=== PATIENT | female | born 1995 | race Caucasian/White ===

== ENCOUNTER 2016-07-02 14:23 | Emergency (ER) | payer SELFPAY ==
[~2016-07-02] VITALS: Ht 160 cm; Wt 59.0 kg
[~2016-07-02 14:23] MED LIST: CIPRO250 MG PO; DIFLUCAN150 MG PO; K-TAB20 MEQ PO; KETOROLAC10 MG PO; LOMOTIL 0.025 M1 TA1 PO; PHENERGAN W/ DE30 ML PO; PREDNICOT10 MG PO; PROAIR HFA0.09 MG/AC INH; ZOFRAN ODT4 MG SL
[2016-07-02 14:52] LABS: HEMATOCRIT 37.6 % (37.0-47.0); HEMOGLOBIN 13.3 g/dl (12.0-16.0); MEAN CELL VOLUME 90.4 fl (81.0-99.0); MEAN CORPUSCULAR HGB CONC 35.4 g/dl (33.0-37.0); MEAN PLATELET VOLUME 9.6 fl (9.6-12.3); PLATELET COUNT AUTOMATED 199 10*3/uL (130-400); RED BLOOD COUNT 4.16 10*6/uL (4.10-5.10); RED CELL DISTRI WIDTH 12.5 % (0-14.5); WHITE BLOOD COUNT 7.4 10*3/uL (4.8-10.8)
[2016-07-02 14:59] LABS: BILIRUBIN NEGATIVE (NEGATIVE); BLOOD NEGATIVE (NEGATIVE); CLARITY SL CLOUDY (CLEAR); COLOR YELLOW (YELLOW); GLUCOSE NEGATIVE (NEGATIVE); KETONE 2+ (NEGATIVE); LEUKO ESTERASE NEGATIVE (NEGATIVE); NITRITE NEGATIVE (NEGATIVE); PH 6.5 (5.0-9.0); PROTEIN TRACE (NEGATIVE); SPECIFIC GRAVITY 1.025 (1.005-1.030)
[2016-07-02 15:08] LABS: ALBUMIN 4.2 gm/dl (3.1-4.5); ALKALINE PHOSPHATASE 58 U/L (45-117); BILIRUBIN, TOTAL 0.7 mg/dl (0.2-1.0); BUN 15 mg/dl (7-24); CARBON DIOXIDE 25 mmol/L (21-32); CHLORIDE 104 mmol/L (98-107); EST GLOM FILT AFRICAN AMERICAN > 60 ml/min; GLUCOSE 99 mg/dL (65-99); POTASSIUM 3.6 mmol/L (3.5-5.1); SGOT/AST 12 IU/L (3-35); SGPT/ALT 13 U/L (12-78); SODIUM 138 mmol/L (136-145); TOTAL PROTEIN 6.9 gm/dL (6.4-8.2)
[2016-07-02 15:11] LABS: ATYPICAL LYMPHS 1 % (0-0); LYMPHOCYTE # 0.5 10*3/uL (1.3-4.4); MONOCYTE # 0.3 10*3/uL (0.1-1.0); NEUTROPHIL # 6.6 10*3/uL (2.3-7.9); NEUTROPHILS 89 % (47-73); PLATELET SUFFICIENCY NORMAL (NORMAL); TOTAL CELLS COUNTED 100 #CELLS
[2016-07-02 15:25] LABS: BACTERIA 3+; MUCOUS 1+; URINE REFLEX COMMENT YES (NO); WBC 0-2 wbc/hpf (0-5)
[2016-07-02] MEDS ORDERED: ZOFRAN ODT4 MG SL (15:51)
== END 2016-07-02 16:02 | disposition home or self-care (01) ==
LOC: ED 14:23
PROVIDERS: Registered Nurse
DX: K52.9 Noninfective gastroenteritis and colitis, unspecified (principal); F17.200 Nicotine dependence, unspecified, uncomplicated

== ENCOUNTER 2016-10-04 01:22 | Emergency (ER) | payer OTHER ==
[~2016-10-04] VITALS: Ht 162.5 cm; Wt 56.7 kg
[2016-10-04] MEDS ORDERED: KEFLEX500 M1 PO ×2 (01:39→01:51)
== END 2016-10-04 02:02 | disposition home or self-care (01) ==
LOC: ED 01:22
DX: S60.372A Other superficial bite of left thumb, initial encounter (principal); S60.471A Other superficial bite of left index finger, initial encounter; W59.11XA Bitten by nonvenomous snake, initial encounter; Y93.89 Activity, other specified; Y92.009 Unspecified place in unspecified non-institutional (private) residence as the place of occurrence of the external cause; Y99.8 Other external cause status

== ENCOUNTER 2017-01-07 10:23 | Emergency (ER) | payer OTHER ==
[~2017-01-07] VITALS: Ht 160 cm; Wt 59.0 kg
[~2017-01-07 10:23] MED LIST changes: +KEFLEX500 M1 PO
[2017-01-07] MEDS ORDERED: CLARITIN10 MG PO (10:56)
[2017-01-07] MEDS ORDERED: FLONASE ALLERG9.9 ML NAS (10:56)
[2017-01-07] MEDS ORDERED: PREDNISONE10 MG PO (10:56)
[2017-01-07] MEDS ORDERED: ROBITUSSIN DM 105 ML PO (10:56)
== END 2017-01-07 12:10 | disposition home or self-care (01) ==
LOC: ED 10:23
DX: B34.9 Viral infection, unspecified (principal); R03.0 Elevated blood-pressure reading, without diagnosis of hypertension; E87.6 Hypokalemia; F17.200 Nicotine dependence, unspecified, uncomplicated

== ENCOUNTER 2017-06-25 09:37 | Emergency (ER) | payer OTHER ==
[~2017-06-25] VITALS: Ht 160 cm; Wt 59.0 kg
[~2017-06-25 09:37] MED LIST changes: +CLARITIN10 MG PO; +FLONASE ALLERG9.9 ML NAS; +PREDNISONE10 MG PO; +ROBITUSSIN DM 105 ML PO
== END 2017-06-25 10:32 | disposition home or self-care (01) ==
LOC: ED 09:37
DX: S16.1XXA Strain of muscle, fascia and tendon at neck level, initial encounter (principal); F17.200 Nicotine dependence, unspecified, uncomplicated; Z79.899 Other long term (current) drug therapy; V49.59XA Passenger injured in collision with other motor vehicles in traffic accident, initial encounter; Y93.89 Activity, other specified; Y92.413 State road as the place of occurrence of the external cause; Y99.9 Unspecified external cause status

== ENCOUNTER 2018-05-05 18:52 | Emergency (ER) | payer OTHER ==
[~2018-05-05] VITALS: Ht 162.5 cm; Wt 77.1 kg
[2018-05-05] MEDS ORDERED: PENICILLIN VK500 MG PO (19:06)
[2018-05-05] MEDS ORDERED: HYDROCODONE-AC1 EAC1 PO (19:06)
[2018-05-05] MEDS ORDERED: Motrin,Rufen800 MG PO (20:45)
== END 2018-05-05 20:52 | disposition home or self-care (01) ==
LOC: ED 18:52
DX: G89.18 Other acute postprocedural pain (principal); K08.89 Other specified disorders of teeth and supporting structures

== ENCOUNTER 2018-09-04 14:04 | Emergency (ER) | payer OTHER ==
[~2018-09-04] VITALS: Ht 162.5 cm; Wt 77.1 kg
[~2018-09-04 14:04] MED LIST changes: +HYDROCODONE-AC1 EAC1 PO; +Motrin,Rufen800 MG PO; +PENICILLIN VK500 MG PO
[2018-09-04] MEDS ORDERED: NORCO 5-325 TA1 EACH PO (16:43)
== END 2018-09-04 16:56 | disposition home or self-care (01) ==
LOC: ED 14:04
DX: S32.010A Wedge compression fracture of first lumbar vertebra, initial encounter for closed fracture (principal); W18.39XA Other fall on same level, initial encounter; Y93.16 Activity, rowing, canoeing, kayaking, rafting and tubing; Y92.89 Other specified places as the place of occurrence of the external cause; Y99.8 Other external cause status

== ENCOUNTER → 2018-10-12 | Outpatient (CLI) | payer OTHER ==
[~2018-10-12] MED LIST changes: +NORCO 5-325 TA1 EACH PO
== END | disposition home or self-care (01) ==
LOC: MRI 10:45
DX: M54.5 Low back pain (principal)

== ENCOUNTER 2018-12-01 14:06 | Emergency (ER) | payer OTHER ==
[~2018-12-01] VITALS: Wt 74.8 kg
[2018-12-01] MEDS ORDERED: PREDNISONE10 MG PO (14:30)
== END 2018-12-01 14:35 | disposition home or self-care (01) ==
LOC: ED 14:06
DX: L23.9 Allergic contact dermatitis, unspecified cause (principal)

== ENCOUNTER 2019-03-02 22:05 | Emergency (ER) | payer OTHER ==
[~2019-03-02] VITALS: Ht 162.5 cm; Wt 74.8 kg
[2019-03-03] MEDS ORDERED: Motrin,Rufen800 MG PO (00:34)
[2019-03-03] MEDS ORDERED: ZOFRAN4 MG PO (00:34)
== END 2019-03-03 00:39 | disposition home or self-care (01) ==
LOC: ED 22:05
DX: B34.9 Viral infection, unspecified (principal); R11.2 Nausea with vomiting, unspecified; F17.200 Nicotine dependence, unspecified, uncomplicated

== ENCOUNTER → 2021-06-24 | Outpatient (CLI) | payer OTHER ==
[~2021-06-24] MED LIST changes: +ZOFRAN4 MG PO
== END | disposition home or self-care (01) ==
LOC: US 13:30
PROVIDERS: ATTEND Nurse Practitioner Women's Health
DX: N88.8 Other specified noninflammatory disorders of cervix uteri (principal); N92.1 Excessive and frequent menstruation with irregular cycle

== ENCOUNTER 2021-08-17 13:59 | Emergency (ER) | payer OTHER ==
[~2021-08-17] VITALS: Wt 72.6 kg
[2021-08-17] MEDS ORDERED: LAMOTRIGINE100 MG PO (14:17)
[2021-08-17] MEDS ORDERED: FLUOXETINE HCL40 MG PO (14:19)
[2021-08-17] MEDS ORDERED: MIRTAZAPINE45 MG PO (14:19)
[2021-08-17] MEDS ORDERED: TRAMADOL HCL50 MG PO (16:46)
== END 2021-08-17 16:59 | disposition home or self-care (01) ==
LOC: ED 13:59
DX: S62.244A Nondisplaced fracture of shaft of first metacarpal bone, right hand, initial encounter for closed fracture (principal); F17.200 Nicotine dependence, unspecified, uncomplicated; Y08.89XA Assault by other specified means, initial encounter; Y93.89 Activity, other specified; Y92.89 Other specified places as the place of occurrence of the external cause; Y99.8 Other external cause status

== ENCOUNTER 2021-12-14 18:06 | Emergency (ER) | payer OTHER ==
[~2021-12-14] VITALS: Ht 162.5 cm; Wt 77.1 kg
[~2021-12-14 18:06] MED LIST changes: +FLUOXETINE HCL40 MG PO; +LAMOTRIGINE100 MG PO; +MIRTAZAPINE45 MG PO; +TRAMADOL HCL50 MG PO
== END 2021-12-14 20:13 | disposition left against medical advice (07) ==
LOC: ED 18:06
DX: M79.644 Pain in right finger(s) (principal); M79.89 Other specified soft tissue disorders; Z53.21 Procedure and treatment not carried out due to patient leaving prior to being seen by health care provider

== ENCOUNTER 2021-12-17 09:09 | Emergency (ER) | payer OTHER ==
[~2021-12-17] VITALS: Ht 162.5 cm; Wt 77.1 kg
== END 2021-12-17 11:35 | disposition home or self-care (01) ==
LOC: ED 09:09
DX: S62.664A Nondisplaced fracture of distal phalanx of right ring finger, initial encounter for closed fracture (principal); V80.010A Animal-rider injured by fall from or being thrown from horse in noncollision accident, initial encounter; Y93.89 Activity, other specified; Y92.89 Other specified places as the place of occurrence of the external cause; Y99.9 Unspecified external cause status